=== PATIENT | male | born 1945 | race Hispanic/Latino ===

== ENCOUNTER 2016-07-22 12:07 | Outpatient (CLI) | payer MEDICARE ==
[2016-07-22 13:07] LABS: Blood Urea Nitrogen 16 mg/dL (9-20)
[2016-07-22] MEDS ORDERED: NACL ONE (13:12)
--- NOTE | 2016-07-22 14:11 | Cat Scan Report ---
CT LOWER EXTREMITY LEFT WITH AND WITHOUT CONTRAST: History: Left hip pain. Technique: Helical CT before and after IV contrast. Sagittal and coronal reformatted images. Comparison: None. Findings: A 6.8 x 4.3 x 6.6 cm enhancing soft tissue mass is identified which destroys a large portion of the left iliac wing. This appears to arise from the left iliacus muscle or gluteal muscles. The epicenter of this mass overlies the left iliac wing. Hypervascularity surrounding the mass is identified. The mass abuts the SI joint medially. No additional mass or adenopathy is identified in the visualized pelvis. The vascular structures, visualized bowel loops, appendix and bladder are unremarkable. Normal prostate gland. The remainder the bony pelvis is intact. No abnormality is appreciated at the left hip. Impression: Enhancing soft tissue mass which partially destroys the left iliac wing as outlined above. This is worrisome for a sarcoma. Other neoplastic processes are not excluded. This mass is accessible for CT-guided percutaneous biopsy if needed. Comment: An attempt to contact the ordering physician, Dr. Cowart, was made at 1400 hrs. at [phone]. The number was disconnected.
== END 2016-07-22 12:08 | disposition home or self-care (01) ==
LOC: CT 12:07
PROVIDERS: ATTEND Nurse Practitioner
DX: M25.552 Pain in left hip (principal); Z91.81 History of falling
CPT/HCPCS: 36415; 73702; 82565; 84520; Q9967

== ENCOUNTER 2016-08-01 07:39 | Day surgery (SDC) | payer MEDICARE ==
[2016-08-01 08:28] LABS: Basophils % (Auto) 0.6 % (0.0-1.8); Eosinophils % (Auto) 9.2 % (0.0-4.3); Hematocrit 39.4 % (35.5-45.6); Hemoglobin 13.3 gm/dl (11.8-15.2); Mean Corpuscular HGB Conc 34 % (32-34); Mean Corpuscular Hemoglobin 30 pg (28-32); Mean Corpuscular Volume 88 fl (84-94); Platelet Count 119 K/mm3 (140-440); Red Blood Count 4.47 M/mm3 (3.65-5.03); Red Cell Distribution Width 15.6 % (13.2-15.2); White Blood Count 4.4 K/mm3 (4.5-11.0)
[2016-08-01 08:37] LABS: INR 1.07 (0.87-1.13)
[2016-08-01 08:38] LABS: Partial Thromboplastin Time 27.5 Sec. (24.2-36.6)
[2016-08-01] MEDS ORDERED: VERSED IV ONE ×2 (09:48→10:00)
[2016-08-01] MEDS ORDERED: SUBLIMAZE ONE (09:49)
[2016-08-01] MEDS ORDERED: SUBLIMAZE IV ONE (10:00)
--- NOTE | 2016-08-01 11:55 | Cat Scan Report ---
CT BIOPSY PELVIS/HIP, LEFT: HISTORY: Left pelvic mass, left hip pain. DESCRIPTION OF PROCEDURE: Informed consent was obtained. Sterile technique was utilized. 1% lidocaine for skin anesthesia. Conscious sedation was accomplished with Versed and fentanyl. The patient was sedated for 20 minutes. Independent cardiorespiratory monitoring by RN. Intraobserver time was [address] guidance, a 17-gauge introducer needle was advanced to the leading edge of a 7.0 x 3.5 cm soft tissue mass with epicenter overlying the right iliac bone. It is unclear if this represents a bony lesion or muscular lesion arising from the gluteal/iliacus muscle. I suspect this arises from the iliac bone. Five 18-gauge core biopsies were obtained for pathology. The samples were deemed adequate by the pathologist on site. No complications. IMPRESSION: Successful CT-guided biopsy of the left pelvic mass, as outlined above.
[2016-08-01 12:12] VITALS: BP 104/45
== END 2016-08-01 12:50 | disposition home or self-care (01) ==
LOC: OPU 07:39
PROVIDERS: ATTEND Nurse Practitioner
DX: R19.09 Other intra-abdominal and pelvic swelling, mass and lump (principal); M25.552 Pain in left hip
CPT/HCPCS: 20206; 36415; 77012; 85025; 85610; 85730; 88173; 88305; 88307; 88333; J2250; J3010; 88342